=== PATIENT | female | born 1945 | race Caucasian/White ===

== ENCOUNTER → 2016-11-27 | Outpatient (CLI) | payer OTHER ==
[2016-11-27 17:43] LABS: ALT/SGPT 18 U/L (12-78); AST/SGOT 12 U/L (15-37); BLOOD UREA NITROGEN 13 mg/dl (7-18); BUN/CREATININE RATIO 20.4 (10-20); CALCIUM 8.7 mg/dl (8.5-10.1); CARBON DIOXIDE 29 mmol/L (21-32); CHLORIDE 104 mmol/L (98-107); CREATININE 0.64 mg/dl (0.60-1.20); GLUCOSE 79 mg/dl (70-99); POTASSIUM 3.7 mmol/L (3.5-5.1); SODIUM 142 mmol/L (136-145)
[2016-11-27 17:52] LABS: ALB/GLOB RATIO 1.1 (0.9-2); ALKALINE PHOSPHATASE 93 U/L (45-117); CHOLESTEROL 240 mg/dl (0-200); CHOLESTEROL/HDL RATIO 3.4; HDL CHOLESTEROL 71 mg/dl; LDL CHOLESTEROL CALCULATED 142 mg/dl; TRIGLYCERIDES 134 mg/dl (0-150); VERY LOW DENSITY LIPOPROT CALC 27 mg/dl
--- NOTE | 2016-12-01 10:38 | CODING QUERY MEDICAL NECESSITY ---
SUPPORTING DIAGNOSIS NEEDED A supporting diagnosis is required for the test/procedure performed on this patient in order for us to be reimbursed by the patient's insurance. Please provide a supporting diagnosis for the following test/procedure listed below next to the test name along with your signature. *If there is no additional diagnosis for this patient that would support the following test/procedure please document that below next to the test/procedure. Test(s)/Procedure(s) that require a supporting diagnosis: * VITAMIN D 25-HYDROXY DIAGNOSIS: * DOS: 11/27/16 Provider Signature: Date: Thank you Sondra Jansen Health Information Management Once completed, please kindly fax back to [phone] For questions please call [phone]
== END | disposition home or self-care (01) ==
LOC: C.LAB1850 16:50
PROVIDERS: ATTEND Internal Medicine
DX: Z11.59 Encounter for screening for other viral diseases (principal); R79.89 Other specified abnormal findings of blood chemistry; I50.9 Heart failure, unspecified; Z13.220 Encounter for screening for lipoid disorders; E78.5 Hyperlipidemia, unspecified; Z87.39 Personal history of other diseases of the musculoskeletal system and connective tissue; M17.0 Bilateral primary osteoarthritis of knee

== ENCOUNTER → 2016-12-03 | Outpatient (CLI) | payer OTHER | END | disposition home or self-care (01) | LOC: C.LABSPEC 15:37 | PROVIDERS: ATTEND Internal Medicine | DX: Z12.11 Encounter for screening for malignant neoplasm of colon (principal) ==

== ENCOUNTER → 2017-06-07 | Outpatient (CLI) | payer OTHER ==
--- NOTE | 2017-06-07 10:43 | DIAGNOSTIC IMAGING REPORT ---
LEFT KNEE ULTRASOUND CLINICAL HISTORY: M25.462 Swelling of left knee joint left knee medial [id number] COMPARISON STUDY: None. FINDINGS: Real-time sonographic imaging of the left medial knee was performed with [employer] sales representative images submitted. No masses or fluid collections seen within the left medial knee. Subcutaneous fat is symmetric to the contralateral side. IMPRESSION: No sonographic abnormality within the left medial knee. Electronically signed by: Jeff Zepeda M.D. 06/07/2017 10:42 AM Dictated Date/Time: 06/07/2017 10:38 AM
== END | disposition home or self-care (01) ==
LOC: C.ULTR 10:13
PROVIDERS: ATTEND Internal Medicine
DX: M25.462 Effusion, left knee (principal)

== ENCOUNTER → 2017-07-04 | Outpatient (CLI) | payer OTHER ==
--- NOTE | 2017-07-04 13:40 | MAMMOGRAPHY REPORT ---
BILATERAL DIGITAL SCREENING MAMMOGRAM TOMOSYNTHESIS WITH CAD: 07/04/2017 CLINICAL HISTORY: Routine screening. Patient has no complaints. TECHNIQUE: Breast tomosynthesis in addition to standard 2D mammography was performed. Current study was also evaluated with a Computer Aided Detection (CAD) system. COMPARISON: Comparison is made to exam dated: 06/06/2016 mammogram - [facility]. BREAST COMPOSITION: There are scattered areas of fibroglandular density in both breasts. FINDINGS: No suspicious masses, calcifications, or areas of architectural distortion are noted in ei ther breast. There has been no significant interval change compared to prior exams. Focal asymmetry in the left lower inner quadrant is stable dating back to at least the 2009 exam. IMPRESSION: ACR BI-RADS CATEGORY 2: BENIGN There is no mammographic evidence of malignancy. A 1 year screening mammogram is recommended. The pa tient will receive written notification of the results. Approximately 10% of breast cancers are not detected with mammography. A negative mammographic report should not delay biopsy if a clinically suggestive mass is present. Gwen Greenwood M.D. ah/:07/04/2017 13:23:09 Massage Therapist: Jaimee BELLO(Sendy)(Eladio)(BD), [facility] letter sent: Normal 1/2 BI-RADS Code: ACR BI-RADS Category 2: Benign
== END | disposition home or self-care (01) ==
LOC: C.MAMM 12:31
PROVIDERS: ATTEND Internal Medicine
DX: Z12.31 Encounter for screening mammogram for malignant neoplasm of breast (principal)

== ENCOUNTER 2017-09-11 16:52 | Emergency (ER) | payer OTHER ==
[~2017-09-11] VITALS: Ht 157.5 cm; Wt 66.8 kg
[2017-09-11 17:02] VITALS: TEMP 36.7; Ht 157.5 cm; Wt 66.8 kg
[2017-09-11] MEDS ORDERED: SODIUM CHLORIDE 0.9% 1000ML 500 ML IV STA (17:11)
--- NOTE | 2017-09-11 17:25 | EMERGENCY ROOM VISIT NOTE ---
History Report prepared by Gavin: Gina Gunn Under the Supervision of: Dr. Jeovanny Handy M.D. First contact with patient: 17:08 Chief Complaint: SYNCOPE Stated Complaint: PASSED OUT FROM HEART MEDICINE History of Present Illness The patient is a 72 year old female who presents to the Emergency Room with complaints of 2 episodes of syncope beginning 2 hours ago. The patient states that she took two dosed of Carvedilol today and began to feel dizzy 30 minutes after she took the medication. She reports that she had an episode of syncope and slid to the floor and 10 minutes later she had a second episode. She notes that she feels fine now and did not have any injury during the fall. The patient denies any urinary symptoms, vomiting, diarrhea, chest pain, and diaphoresis. The patient reports that she did have a cold last week and some congestion. Source of History: patient Onset: 2 hours ago Position: other (global) Quality: other (syncope) Timing: other (2 episodes) Associated Symptoms: + SOB, No diaphoresis, No chest pain, No vomiting, No diarrhea, No urinary symptoms Review of Systems See HPI for pertinent positives & negatives. A total of 10 systems reviewed and were otherwise negative. Past Medical & Surgical Medical Problems: (1) Heart failure Family History No pertinent family history stated. Social History Smoking Status: Former Smoker Marital Status: Housing Status: lives with significant other Occupation Status: retired Current/Historical Medications Scheduled Ascorbic Acid (Vitamin C), 500 MG PO DAILY Carvedilol (Coreg), 25 MG PO BID Cholecalciferol (Vitamin D), 2,000 UNITS PO DAILY Digoxin (Digox), 250 MCG PO DAILY Fish Oil ([place]-3), 1 CAP PO DAILY Losartan Potassium (Cozaar), 50 MG PO DAILY Multiple Vitamins W/ Minerals (Eye Vitamins), 1 CAP PO DAILY Multiple Vitamins W/ Minerals (Hair/Skin/Nails), 1 TAB PO DAILY Scheduled PRN Bisacodyl (Dulcolax), 5 MG PO DAILY PRN for Constipation Melatonin-Pyridoxine (Melatin), 1 TAB PO HS PRN for Sleep Allergies Coded Allergies: No Known Allergies (Unverified , 09/11/17) Physical Exam Vital Signs Date Time Temp Pulse Resp B/P (MAP) Pulse Ox O2 Delivery O2 Flow Rate FiO2 09/11/17 19:34 68 16 112/83 97 09/11/17 19:25 68 16 112/83 97 Room Air 09/11/17 17:52 73 16 126/65 97 Room Air 82 122/60 75 126/68 09/11/17 17:29 72 09/11/17 17:17 Room Air 09/11/17 17:02 36.7 69 20 121/66 97 Room Air Physical Exam GENERAL: Patient is in no acute distress. HEENT: No acute trauma, normocephalic atraumatic, mucous membranes moist, no nasal congestion, no scleral icterus. NECK: No stridor, no adenopathy, no meningismus, trachea is midline. LUNGS: Clear to auscultation bilaterally, no wheeze, no rhonchi, breath sounds equal. HEART: Without murmurs gallops or rubs, regular rate and rhythm. ABDOMEN: Soft, nontender, bowel sounds positive, no hernias, no peritonitis. EXTREMITIES: No cyanosis or edema, full range of motion of all the joints without pain or difficulty, no signs for acute trauma. NEUROLOGIC: Oriented x 3, no acute motor or sensory deficits, no focal weakness. SKIN: No rash, no jaundice, no diaphoresis. Medical Decision & Procedures ER Provider Diagnostic Interpretation: X-ray results as stated below per interpretation by me and the radiologist: CHEST ONE VIEW PORTABLE FINDINGS: Lung volumes are normal. No pneumothorax or pleural effusion is present. There is no consolidation to suggest pneumonia and there is no evidence of pulmonary edema. Mild cardiomegaly is noted. There may be calcified nodules within the lungs. IMPRESSION: No acute cardiopulmonary findings. Electronically signed by: Gera Ross M.D. 09/11/2017 5:49 PM Dictated Date/Time: 09/11/2017 5:48 PM Laboratory Results 09/11/17 17:20 Red Blood Count 4.54, Mean Corpuscular Volume 87.2, Mean Corpuscular Hemoglobin 29.7, Mean Corpuscular Hemoglobin Concent 34.1, Mean Platelet Volume 10.7, Neutrophils (%) (Auto) 77.6, Lymphocytes (%) (Auto) 15.0, Monocytes (%) (Auto) 4.2, Eosinophils (%) (Auto) 2.5, Basophils (%) (Auto) 0.5, Neutrophils # (Auto) 7.49, Lymphocytes # (Auto) 1.45, Monocytes # (Auto) 0.41, Eosinophils # (Auto) 0.24, Basophils # (Auto) 0.05 09/11/17 17:20 Test 09/11/17 17:20 09/11/17 17:26 White Blood Count 9.66 K/uL (4.8-10.8) Red Blood Count 4.54 M/uL (4.2-5.4) Hemoglobin 13.5 g/dL (12.0-16.0) Hematocrit 39.6 % (37-47) Mean Corpuscular Volume 87.2 fL (80-100) Mean Corpuscular Hemoglobin 29.7 pg (25-34) Mean Corpuscular Hemoglobin Concent 34.1 g/dl (32-36) Platelet Count 252 K/uL (130-400) Mean Platelet Volume 10.7 fL (7.4-10.4) Neutrophils (%) (Auto) 77.6 % Lymphocytes (%) (Auto) 15.0 % Monocytes (%) (Auto) 4.2 % Eosinophils (%) (Auto) 2.5 % Basophils (%) (Auto) 0.5 % Neutrophils # (Auto) 7.49 K/uL (1.4-6.5) Lymphocytes # (Auto) 1.45 K/uL (1.2-3.4) Monocytes # (Auto) 0.41 K/uL (0.11-0.59) Eosinophils # (Auto) 0.24 K/uL (0-0.5) Basophils # (Auto) 0.05 K/uL (0-0.2) RDW Standard Deviation 41.3 fL (36.4-46.3) RDW Coefficient of Variation 12.8 % (11.5-14.5) Immature Granulocyte % (Auto) 0.2 % Immature Granulocyte # (Auto) 0.02 K/uL (0.00-0.02) Anion Gap 1.0 mmol/L (3-11) Est Creatinine Clear Calc Drug Dose 73.4 ml/min Estimated GFR () 104.6 Estimated GFR (Non- 90.2 BUN/Creatinine Ratio 29.9 (10-20) Calcium Level 8.8 mg/dl (8.5-10.1) Magnesium Level 1.7 mg/dl (1.8-2.4) Total Bilirubin 0.4 mg/dl (0.2-1) Aspartate Amino Transf (AST/SGOT) 14 U/L (15-37) Alanine Aminotransferase (ALT/SGPT) 21 U/L (12-78) Alkaline Phosphatase 109 U/L (45-117) Troponin I < 0.015 ng/ml (0-0.045) Total Protein 6.9 gm/dl (6.4-8.2) Albumin 3.3 gm/dl (3.4-5.0) Globulin 3.6 gm/dl (2.5-4.0) Albumin/Globulin Ratio 0.9 (0.9-2) Thyroid Stimulating Hormone (TSH) 1.850 uIu/ml (0.300-4.500) Digoxin Level 0.9 ng/ml (0.8-2.0) Urine Color YELLOW Urine Appearance CLEAR (CLEAR) Urine pH 5.0 (4.5-7.5) Urine Specific [place] 1.029 (1.000-1.030) Urine Protein NEG (NEG) Urine Glucose (UA) NEG (NEG) Urine Ketones NEG (NEG) Urine Occult Blood NEG (NEG) Urine Nitrite NEG (NEG) Urine Bilirubin NEG (NEG) Urine Urobilinogen NEG (NEG) Urine Leukocyte Esterase NEG (NEG) Laboratory results reviewed by me. Medications Administered Medications (Trade) Dose Ordered Sig/Batool Route Start Time Stop Time Status Last Admin Dose Admin Sodium Chloride 500 ml @ 999 mls/hr Q31M STAT IV 09/11/17 17:11 09/11/17 17:41 DC 09/11/17 17:50 999 MLS/HR Magnesium Oxide (Mag-Ox Tab) 800 mg NOW STAT PO 09/11/17 18:15 09/11/17 18:17 DC 09/11/17 18:40 800 MG ECG Indication: chest pain Rate (beats per minute): 63 Rhythm: sinus rhythm Findings: LBBB, no acute ischemic change, no ectopy, other (sinus arrythmia) Comparison ECG Date: no prior available ED Course 1708: The patient was evaluated in room C2. A complete history and physical exam was performed. 1711: Sodium Chloride 500 ml @ 999 mls/hr IV. 1815: Magnesium Oxide 800mg PO. 1824: I reevaluated and updated the patient. Orthostatic vital signs are negative. 185: Reevaluated the patient. Discussed results and discharge instructions: She verbalized understanding and agreement. The patient is ready for discharge. Medical Decision The patient is a 72 year old female who presents to the ED with complaints of an episode of syncope. Differential diagnoses considered include medication error, bradycardia, hypotension, anemia, UTI, dysrhythmia, LA. There is no leukocytosis or concerning anemia. The patient does have a slightly low magnesium level, no kidney failure. No hepatitis. The patient appears to be in a euthyroid state. Urinalysis does not show infection. Digoxin level is not toxic. EKG shows a sinus rhythm, no acute ischemia. Cardiac enzyme testing times one is not consistent with acute cardiac injury. Orthostatic vital signs are negative. Chest film does not show pneumonia, mediastinal widening or CHF. The patient was given a dose of oral magnesium. She has done well here in the ED, she has no complaints and feels back to baseline. I suspect the patient had a syncopal event from taking her Coreg doses to close together. Now that some time has passed, she is doing well. I think she can be discharged with outpatient follow-up. She can talk to her doctor about having a repeat magnesium level drawn. If things are worsening, she can return. Medication Reconcilliation Current Medication List: was personally reviewed by me Blood Pressure Screening Patient's blood pressure: Normal blood pressure Blood pressure disposition: Did not require urgent referral Impression Primary Impression: Syncope Additional Impression: Hypomagnesemia Scribe Attestation The scribe's documentation has been prepared under my direction and personally reviewed by me in its entirety. I confirm that the note above accurately reflects all work, treatment, procedures, and medical decision making performed by me. Departure Information Dispostion Home / Self-Care Referrals RV. Epstein MD (PCP) Patient Instructions [facility] Additional Instructions recheck with your doctor this week--may need to have a repeat magnesium level checked heart testing was all ok today return if worsening Problem Qualifiers
[2017-09-11] MEDS ORDERED: ASCO1CAP3 PO (17:33)
[2017-09-11] MEDS ORDERED: OMEG10007 PO (17:33)
[2017-09-11] MEDS ORDERED: MELA1TAB7 PO (17:33)
[2017-09-11] MEDS ORDERED: DIGO0.2519 PO (17:33)
[2017-09-11] MEDS ORDERED: MULTCAP7 PO (17:33)
[2017-09-11] MEDS ORDERED: CHOL20009 PO (17:33)
[2017-09-11] MEDS ORDERED: LOSA50TA6 PO (17:33)
[2017-09-11] MEDS ORDERED: BISA-16 PO (17:33)
[2017-09-11] MEDS ORDERED: CARV25TA PO (17:33)
[2017-09-11] MEDS ORDERED: MULT-580 PO (17:33)
[2017-09-11 17:39] LABS: BASO % 0.5 %; BASO ABS # 0.05 K/uL (0-0.2); COMPLETE YES; EOS % 2.5 %; HEMATOCRIT 39.6 % (37-47); IG% 0.2 %; LYMPH ABS # 1.45 K/uL (1.2-3.4); MEAN CELL VOLUME 87.2 fL (80-100); MEAN CORPUSCULAR HEMOGLOBIN 29.7 pg (25-34); MEAN CORPUSCULAR HGB CONC 34.1 g/dl (32-36); MEAN PLATELET VOLUME 10.7 fL (7.4-10.4); MONO % 4.2 %; NEUT % 77.6 %; PLATELET COUNT 252 K/uL (130-400); RED BLOOD COUNT 4.54 M/uL (4.2-5.4); WHITE BLOOD COUNT 9.66 K/uL (4.8-10.8)
--- NOTE | 2017-09-11 17:50 | DIAGNOSTIC IMAGING REPORT ---
CHEST ONE VIEW PORTABLE CLINICAL HISTORY: Altered mental status. Weakness. COMPARISON STUDY: No previous studies for comparison. FINDINGS: Lung volumes are normal. No pneumothorax or pleural effusion is present. There is no consolidation to suggest pneumonia and there is no evidence of pulmonary edema. Mild cardiomegaly is noted. There may be calcified nodules within the lungs. IMPRESSION: No acute cardiopulmonary findings. Electronically signed by: Gera Ross M.D. 09/11/2017 5:49 PM Dictated Date/Time: 09/11/2017 5:48 PM
[2017-09-11 17:58] LABS: ALT/SGPT 21 U/L (12-78); AST/SGOT 14 U/L (15-37); BLOOD UREA NITROGEN 19 mg/dl (7-18); BUN/CREATININE RATIO 29.9 (10-20); CALCIUM 8.8 mg/dl (8.5-10.1); CARBON DIOXIDE 29 mmol/L (21-32); CHLORIDE 102 mmol/L (98-107); CREATININE 0.63 mg/dl (0.60-1.20); GLUCOSE 93 mg/dl (70-99); MAGNESIUM 1.7 mg/dl (1.8-2.4); POTASSIUM 3.6 mmol/L (3.5-5.1); SODIUM 132 mmol/L (136-145)
[2017-09-11 18:01] LABS: URINE APPEARANCE CLEAR (CLEAR); URINE BILIRUBIN NEG (NEG); URINE COLOR YELLOW; URINE NITRITE NEG (NEG); URINE SPECIFIC GRAVITY 1.029 (1.000-1.030); UROBILINOGEN NEG (NEG); ZZUR CULT IF INDIC CLEAN CATCH NO
[2017-09-11 18:08] LABS: ALB/GLOB RATIO 0.9 (0.9-2); ALKALINE PHOSPHATASE 109 U/L (45-117)
[2017-09-11] MEDS ORDERED: MAGNESIUM OXIDE 400 MG TAB PO STA (18:15)
[2017-09-11 18:28] LABS: MANUAL MICROSCOPIC REQUIRED? NO; REVIEW REQ? NO
[2017-09-11 19:34] VITALS: BP 112/83; PULSE 68; O2SAT 97
== END 2017-09-11 19:30 | disposition home or self-care (01) ==
LOC: C.EDB 16:54 → C.EDC 19:30
DX: R55 Syncope and collapse (principal); E83.42 Hypomagnesemia; I50.9 Heart failure, unspecified; Z87.891 Personal history of nicotine dependence; Z79.899 Other long term (current) drug therapy